=== PATIENT | female | born 1975 | race Hispanic/Latino ===

== ENCOUNTER 2017-04-13 07:14 | Emergency (ER) | payer OTHER ==
[2017-04-13] MEDS ORDERED: predniSONE 20 MG TAB ONE (07:53)
[2017-04-13 07:54] LABS: #Eosinphils 0.1 thou/uL (0.0-0.7); #Lymphocytes 1.5 thou/uL (1.20-3.40); #Monocytes 0.4 thou/uL (0.11-0.59); #Neutrophils 3.3 thou/uL (1.40-6.50); %Basophils 0.9 % (0.0-1.0); %Eosinophils 2.2 % (0.0-10.0); %Lymphocytes 28.2 % (21.0-51.0); %Monocytes 7.3 % (0.0-10.0); %Neutrophils 61.4 % (42.0-75.0); Hemoglobin 14.5 g/dL (12.0-16.0); Mean Corpuscular HGB CONC 32.8 g/dL (32.0-36.0); Mean Corpuscular Hemoglobin 32.3 pg (27.0-31.0); Mean Corpuscular Volume 98.3 fl (81.0-99.0); Mean Platelet Volume 6.1 fL (7.4-10.4); Platelet Count 371 thou/uL (130-400); RBC Distribution Width 11.8 % (11.5-14.5); Red Blood Cell (RBC) Count 4.49 mill/uL (4.20-5.40); White Blood Cell (WBC) Count 5.3 thou/uL (4.8-10.8)
[2017-04-13 08:12] LABS: Anion Gap 12 mmol/L (10-20); BUN (Urea Nitrogen) 19 mg/dL (7.0-18.7); CK (CPK) 73 U/L (29-168); Calc. Creatinine Clearance 0 mL/min (70-130); Calcium 9.6 mg/dL (7.8-10.44); Carbon Dioxide 25 mmol/L (22-29); Chloride 107 mmol/L (98-107); Estimated GFR-MDRD 86; Glucose 84 mg/dL (70-105); Potassium 3.7 mmol/L (3.5-5.1); Sodium 140 mmol/L (136-145)
== END 2017-04-13 08:25 | disposition home or self-care (01) ==
LOC: ERS 07:14
DX: M32.10 Systemic lupus erythematosus, organ or system involvement unspecified (principal); Z87.891 Personal history of nicotine dependence
CPT/HCPCS: 36415; 80048; 82550; 85025; 99283; J7506

== ENCOUNTER 2018-02-23 10:53 | Emergency (ER) | payer OTHER, SELFPAY ==
[2018-02-23 11:44] LABS: #Eosinphils 0.1 thou/uL (0.0-0.7); #Lymphocytes 1.6 thou/uL (1.20-3.40); #Monocytes 0.5 thou/uL (0.11-0.59); #Neutrophils 3.8 thou/uL (1.40-6.50); %Basophils 0.5 % (0.0-1.0); %Eosinophils 1.3 % (0.0-10.0); %Lymphocytes 27.2 % (21.0-51.0); %Monocytes 8.4 % (0.0-10.0); %Neutrophils 62.7 % (42.0-75.0); Hemoglobin 14.7 g/dL (12.0-16.0); Mean Corpuscular Hemoglobin 31.9 pg (27.0-31.0); Mean Platelet Volume 6.5 fL (7.4-10.4); Platelet Count 388 thou/uL (130-400); RBC Distribution Width 11.6 % (11.5-14.5); Red Blood Cell (RBC) Count 4.59 mill/uL (4.20-5.40)
[2018-02-23 12:10] LABS: ALT (SGPT) 14 U/L (8-55); AST (SGOT) 22 U/L (5-34); Albumin 4.2 g/dL (3.5-5.0); Alkaline Phosphatase 57 U/L (40-150); Anion Gap 13 mmol/L (10-20); BUN (Urea Nitrogen) 11 mg/dL (7.0-18.7); Bilirubin, Total 0.4 mg/dL (0.2-1.2); CKMB 1.3 ng/mL (0-6.6); Calc. Creatinine Clearance 0 mL/min (70-130); Calcium 9.6 mg/dL (7.8-10.44); Carbon Dioxide 25 mmol/L (22-29); Chloride 108 mmol/L (98-107); Estimated GFR-MDRD 80; Globulin 3.2 g/dL (2.4-3.5); Glucose 84 mg/dL (70-105); Potassium 4.2 mmol/L (3.5-5.1); Protein, Total 7.4 g/dL (6.0-8.3); Sodium 142 mmol/L (136-145); Troponin I Less than 0.010 ng/mL (< 0.028)
--- NOTE | 2018-02-23 14:15 | RAD ---
PA AND LATERAL VIEWS CHEST: Date: 02/23/18 HISTORY: Shortness of breath, tachycardia, chest pain. FINDINGS: The heart size is normal. The lungs are well expanded without focal areas of consolidation, pneumotho rax, or pleural effusions. No acute osseous abnormalities are seen. IMPRESSION: No radiographic evidence of acute cardiopulmonary process. POS: [facility]
[2018-02-23 14:49] LABS: Troponin I Less than 0.010 ng/mL (< 0.028)
== END 2018-02-23 15:11 | disposition home or self-care (01) ==
LOC: ERS 10:53
DX: R06.02 Shortness of breath (principal); M06.9 Rheumatoid arthritis, unspecified; Z87.891 Personal history of nicotine dependence; Z79.899 Other long term (current) drug therapy
CPT/HCPCS: 36415; 71046; 80053; 82553; 84484; 85025; 93005

== ENCOUNTER 2018-10-05 08:57 | Outpatient (CLI) | payer BC ==
--- NOTE | 2018-10-05 09:12 | RAD ---
XR Chest Pa Lat STANDARD HISTORY: Cough COMPARISON: 02/23/2018 FINDINGS: The heart size is normal. The lungs are well expanded without focal areas of consolidation, pneumothorax or pleural effusions. IMPRESSION: No radiographic evidence of acute cardiopulmonary process.
== END 2018-10-05 08:58 | disposition home or self-care (01) ==
LOC: BICRAD 08:57
PROVIDERS: ATTEND Family Medicine
DX: R05 Cough (principal)
CPT/HCPCS: 36415; 71046; 80053; 81003; 84702; 85025; 85610; 85730; 87389

== ENCOUNTER 2018-10-09 09:22 | Outpatient (CLI) | payer BC ==
--- NOTE | 2018-10-09 17:12 | EKG ---
Test Reason : Blood Pressure : / mmHG Vent. Rate : 063 BPM Atrial Rate : 063 BPM P-R Int : 132 ms QRS Dur : 074 ms QT Int : 392 ms P-R-T Axes : 059 043 040 degrees QTc Int : 401 ms Normal sinus rhythm Normal ECG When compared with ECG of 23-FEB-2018 11:05, No significant change was found Confirmed by DR. Mable SAMUEL ([id number]) on 10/09/2018 5:12:16 PM Referred By: KRIS Confirmed By:DR. Mable SAMUEL
== END 2018-10-09 09:23 | disposition home or self-care (01) ==
LOC: EKG 09:22
PROVIDERS: ATTEND Family Medicine
DX: Z01.818 Encounter for other preprocedural examination (principal)
CPT/HCPCS: 93005; 93010

== ENCOUNTER 2018-10-16 14:44 | Outpatient (CLI) | payer BC ==
--- NOTE | 2018-10-16 15:16 | MMO ---
Bilateral MAMMO Bilat Screen [facility]. CLINICAL HISTORY: Patient is 43 years old and is seen for screening. The patient has no family history of breast cancer. The patient has no personal history of cancer. The patient has a history of bilateral Implants in 2011. VIEWS: The views performed were: bilateral craniocaudal; bilateral mediolateral oblique; and bilateral Implant displaced with tomosynthesis. FILMS COMPARED: The present examination has been compared to prior imaging studies performed at [facility] on 06/16/2017, and at [facility] on 10/15/2013. MAMMOGRAM FINDINGS: There are scattered fibroglandular densities. There are no suspicious masses, suspicious calcifications, or new areas of architectural distortion. IMPRESSION: THERE IS NO MAMMOGRAPHIC EVIDENCE OF MALIGNANCY. A ROUTINE FOLLOW-UP MAMMOGRAM IN 1 YEAR IS RECOMMENDED. THE RESULTS OF THIS EXAM WERE SENT TO THE PATIENT. ACR BI-RADS Category 1 - Negative MAMMOGRAPHY NOTE: 1. A negative mammogram report should not delay a biopsy if a dominant of clinically suspicious mass is present. 2. Approximately 10% to 15% of breast cancers are not detected by mammography. 3. Adenosis and dense breasts may obscure an underlying neoplasm. Reported by: SAMUEL COOPER MD Electonically Signed: [id number]
== END 2018-10-16 14:45 | disposition home or self-care (01) ==
LOC: BICMAMMO 14:44
PROVIDERS: ATTEND Family Medicine
DX: Z12.31 Encounter for screening mammogram for malignant neoplasm of breast (principal); Z98.82 Breast implant status
CPT/HCPCS: 77063; 77067

== ENCOUNTER 2018-11-25 08:29 | Emergency (ER) | payer BC ==
--- NOTE | 2018-11-25 09:11 | CT ---
EXAM: Brain CTWithout contrast: HISTORY: Headache COMPARISON: None FINDINGS: No focal mass or midline shift. No intra or extra-axial hemorrhage. Sinuses and mastoids are clear of acute process. IMPRESSION: No mass or bleed or other significant acute intracranial process.
[2018-11-25] MEDS ORDERED: diphenhydrAMINE 50 MG/ML VIAL ONE ×2 (09:24→12:24)
[2018-11-25] MEDS ORDERED: Metoclopramide HCl 10 MG/2 ML VIAL ONE ×2 (09:24→12:24)
--- NOTE | 2018-11-25 09:52 | RAD ---
FRONTAL RADIOGRAPH CHEST: Date: 11/25/18 COMPARISON: 10/05/18. HISTORY: Headaches and leg swelling. FINDINGS: Lungs are clear. Heart and mediastinal contours unremarkable. IMPRESSION: No acute findings. POS: [facility]
[2018-11-25 09:59] LABS: #Basophils 0.1 thou/uL (0.0-0.2); #Eosinphils 0.1 thou/uL (0.0-0.7); #Lymphocytes 2.1 thou/uL (1.20-3.40); #Monocytes 0.7 thou/uL (0.11-0.59); %Basophils 0.5 % (0.0-1.0); %Eosinophils 0.8 % (0.0-10.0); %Lymphocytes 19.3 % (21.0-51.0); %Monocytes 6.2 % (0.0-10.0); %Neutrophils 73.2 % (42.0-75.0); Hemoglobin 9.4 g/dL (12.0-16.0); Mean Corpuscular HGB CONC 33.1 g/dL (32.0-36.0); Mean Corpuscular Volume 99.8 fL (78.0-98.0); Mean Platelet Volume 5.4 fL (7.4-10.4); Platelet Count 809 thou/uL (130-400); RBC Distribution Width 14.2 % (11.5-14.5); Red Blood Cell (RBC) Count 2.83 mill/uL (4.20-5.40)
[2018-11-25 10:25] LABS: ALT (SGPT) 55 U/L (8-55); AST (SGOT) 43 U/L (5-34); Albumin 4.4 g/dL (3.5-5.0); Alkaline Phosphatase 67 U/L (40-150); Anion Gap 13 mmol/L (10-20); BUN (Urea Nitrogen) 7 mg/dL (7.0-18.7); Bilirubin, Total 0.6 mg/dL (0.2-1.2); Calc. Creatinine Clearance 0 mL/min (70-130); Calcium 9.6 mg/dL (7.8-10.44); Carbon Dioxide 24 mmol/L (22-29); Chloride 104 mmol/L (98-107); Estimated GFR-MDRD Greater than 90; Globulin 2.9 g/dL (2.4-3.5); Glucose 80 mg/dL (70-105); Potassium 4.2 mmol/L (3.5-5.1); Protein, Total 7.3 g/dL (6.0-8.3); Sodium 137 mmol/L (136-145)
--- NOTE | 2018-11-25 10:47 | ULT ---
BILATERAL LOWER EXTREMITY VENOUS DOPPLER ULTRASOUND: Date: 11/25/18 HISTORY: Pain and swelling, assess for deep venous thrombosis. TECHNIQUE: Multiplanar Melgoza scale sonographic imaging of the venous structures obtained as detailed below. FINDINGS: The dock manager was unable to assess the common femoral vein, greater saphenous vein, proximal femora l vein, or profunda femoral vein on either side as the patient was unable to lie on her back and had to be imaged in the prone position. The left mid femoral vein, distal femoral vein, and popliteal vein appear patent. The mid and distal posterior tibial vein on the left could not be visualized secondary to edema. On the right, the mid femoral vein, distal femoral vein, and popliteal vein appear patent. Right post erior tibial vein could not be well visualized secondary to edema. IMPRESSION: Limited study secondary to patient positioning. The common femoral vein, greater saphenous vein, prof unda femoral vein, and proximal femoral vein could not be assessed on either side. The mid and distal femoral vein and popliteal vein demonstrate no evidence for deep venous thrombosis. POS: [facility]
[2018-11-25 11:50] LABS: Color Of CSF Supernatant COLORLESS (Colorless); Tube # 2; Unspun CSF Color COLORLESS (Colorless)
[2018-11-25 12:04] LABS: CSF, Glucose 50 mg/dl (40-70); CSF, Protein 22 mg/dL (15-40)
[2018-11-25 12:17] LABS: CSF Source CSF; Clarity Clear (Clear); Tube # 4
[2018-11-25 12:18] LABS: CSF Source CSF; Clarity Clear (Clear); Tube # 1
[2018-11-25] MEDS ORDERED: Furosemide 20 MG/2 ML VIAL ONE (12:24)
[2018-11-25] MEDS ORDERED: Magnesium 2 GM/50 ML BAG (IN WATER) ONE (12:24)
[2018-11-25] MEDS ORDERED: Ketorolac Tromethamine 30 MG/ML VIAL ONE (12:24)
== END 2018-11-25 13:44 | disposition home or self-care (01) ==
LOC: ERS 08:29
DX: R60.0 Localized edema (principal); R51 Headache; Z87.891 Personal history of nicotine dependence
CPT/HCPCS: 62270; 70450; 71045; 80053; 82945; 83880; 84157; 84484; 85025; 87070; 87205; 89051; 93005; 93970; 96365; 96367; 96375; J1200; J1885; J1940; J2765; J3475

== ENCOUNTER 2019-03-01 08:16 | Emergency (ER) | payer BC ==
[2019-03-01] MEDS ORDERED: Ketorolac Tromethamine 60 MG/2 ML VIAL ONE (08:40)
--- NOTE | 2019-03-01 09:11 | RAD ---
XR Chest 1 View Portable HISTORY: Cough COMPARISON: 11/25/2018 FINDINGS: The heart size is normal. The lungs are well expanded without focal areas of consolidation, pneumothorax or pleural effusions. IMPRESSION: No radiographic evidence of acute cardiopulmonary process.
== END 2019-03-01 10:48 | disposition home or self-care (01) ==
LOC: ERS 08:16
DX: J06.9 Acute upper respiratory infection, unspecified (principal); M06.9 Rheumatoid arthritis, unspecified; Z87.891 Personal history of nicotine dependence; Z79.899 Other long term (current) drug therapy
CPT/HCPCS: 71045; 87804; 93005; 96372; J1885

== ENCOUNTER 2019-05-13 09:58 | Outpatient (CLI) | payer BC ==
--- NOTE | 2019-05-13 11:59 | RAD ---
CHEST 2 VIEWS: Date: 05/13/2019 HISTORY: Acute bronchitis. COMPARISON: 10/05/2018. FINDINGS: Heart size is normal. The lungs are clear. IMPRESSION: No significant acute intrathoracic disease. POS: [facility]
== END 2019-05-13 09:59 | disposition home or self-care (01) ==
LOC: BICRAD 09:58
PROVIDERS: ATTEND Family Medicine
DX: J20.9 Acute bronchitis, unspecified (principal)
CPT/HCPCS: 36415; 71046; 80053; 81003; 84702; 85025; 85610; 85730; 87338; 87389

== ENCOUNTER 2019-05-15 09:24 | Outpatient (CLI) | payer BC ==
--- NOTE | 2019-05-16 15:55 | EKG ---
Test Reason : PREOP Blood Pressure : / mmHG Vent. Rate : 072 BPM Atrial Rate : 072 BPM P-R Int : 132 ms QRS Dur : 074 ms QT Int : 372 ms P-R-T Axes : 064 029 028 degrees QTc Int : 407 ms Normal sinus rhythm Normal ECG Confirmed by JUSTICE RPOER ([id number]) on 05/16/2019 3:54:34 PM Referred By: ЮЛИЯ Confirmed By:JUSTICE ROPER
== END 2019-05-15 09:25 | disposition home or self-care (01) ==
LOC: EKG 09:24
PROVIDERS: ATTEND Family Medicine
DX: Z01.810 Encounter for preprocedural cardiovascular examination (principal)
CPT/HCPCS: 93005; 93010

== ENCOUNTER 2019-05-31 10:35 | Outpatient (CLI) | payer BC ==
--- NOTE | 2019-05-31 11:49 | ULT ---
PELVIC ULTRASOUND INCLUDING TRANSABDOMINAL AND TRANSVAGINAL AND VASCULAR DUPLEX WITH COLOR AND SPECTR AL DOPPLER IMAGING: HISTORY: Postmenopausal bleeding. FINDINGS: Uterus measures 8.3 x 4.1 x 5.1 cm. Endometrium has a very nodular focal area of increased echogenicity and overall measurements of 1.4 c m in thickness. Right ovary: 2.5 x 2.7 x 4.0 cm containing a 1.6 x 1.9 x 2.3 cm cyst. Left ovary: 1.8 x 1.9 x 2.2 cm. Vascular flow noted to both ovaries. IMPRESSION: Nodular focal echogenic density within the endometrial cavity at the level of the fundus of the uteru s without definitive blood flow. Possibilities include that of focal hemorrhage versus a soft tissue mass. Gynecological followup is suggested. POS: [facility]
== END 2019-05-31 10:36 | disposition home or self-care (01) ==
LOC: BICULT 10:35
PROVIDERS: ATTEND Family Medicine
DX: N92.1 Excessive and frequent menstruation with irregular cycle (principal); R10.84 Generalized abdominal pain; N85.8 Other specified noninflammatory disorders of uterus
CPT/HCPCS: 36415; 76856; 80053; 81001; 83001; 84443; 84703; 85025; 87086; 87491; 87591

== ENCOUNTER 2019-08-06 18:07 | Observation (INO) | payer BC ==
[2019-08-06] MEDS ORDERED: Acetaminophen 325 MG TAB PO PRN (19:19)
[2019-08-06] MEDS ORDERED: Ondansetron ODT 4 MG TAB PO PRN (19:19)
[2019-08-06] MEDS ORDERED: Ondansetron PF 4 MG/2 ML Vial IVP PRN ×2 (19:19→20:22)
[2019-08-06 20:08] LABS: Hemoglobin 7.8 g/dL (12.0-16.0); Mean Corpuscular HGB CONC 32.8 g/dL (32.0-36.0); Mean Corpuscular Volume 97.4 fL (78.0-98.0); Mean Platelet Volume 5.9 fL (7.4-10.4); Platelet Count 557 thou/uL (130-400); RBC Distribution Width 13.4 % (11.5-14.5); Red Blood Cell (RBC) Count 2.44 mill/uL (4.20-5.40); White Blood Cell (WBC) Count 10.7 thou/uL (4.8-10.8)
[2019-08-06] MEDS ORDERED: cloNIDine 0.1 MG TAB PO PRN (20:22)
[2019-08-06] MEDS ORDERED: Promethazine HCl 12.5 MG in Sodium Chloride 0.9% 50 ML IVPB PRN (20:22)
[2019-08-06] MEDS ORDERED: Labetalol HCl 100 MG/20 ML VIAL SLOW IVP PRN (20:22)
[2019-08-06] MEDS ORDERED: hydrALAZINE 20 MG/ML VIAL SLOW IVP PRN (20:22)
[2019-08-06] MEDS ORDERED: Bisacodyl 5 MG TAB PO PRN (20:23)
[2019-08-06] MEDS ORDERED: Senokot S 8.6-50 MG TAB PO PRN (20:23)
[2019-08-06 20:26] LABS: ALT (SGPT) 27 U/L (8-55); AST (SGOT) 17 U/L (5-34); Albumin 3.6 g/dL (3.5-5.0); Alkaline Phosphatase 53 U/L (40-110); Anion Gap 12 mmol/L (10-20); BUN (Urea Nitrogen) 8 mg/dL (7.0-18.7); Bilirubin, Total 0.6 mg/dL (0.2-1.2); Calc. Creatinine Clearance 0 mL/min (70-130); Calcium 9.2 mg/dL (7.8-10.44); Carbon Dioxide 24 mmol/L (22-29); Chloride 110 mmol/L (98-107); Estimated GFR-MDRD 83; Globulin 2.7 g/dL (2.4-3.5); Glucose 99 mg/dL (70-105); Potassium 3.8 mmol/L (3.5-5.1); Protein, Total 6.3 g/dL (6.0-8.3); Sodium 142 mmol/L (136-145)
--- NOTE | 2019-08-06 20:29 | PDOC.HHP ---
Hospitalist HPI - History of Present Illness Leg swelling History of Present Illness: Patient is a 44 year old female with PMH lupus who presents as transfer from [facility] for anemia, bilateral leg swelling. Patient had a cosmetic procedure last Monday by Dr Hector Olmedo in [place]. She has had several of these types of proceures before, this was a revision of a liposuction procedure which was performed after lingering hip pain following previous liposuction. She reports was doing well, however she developed swollen legs and felt like her toes were full and painful, she has 3+ pitting edema to ble w/ ecchymoses on thighs and lower legs buttocks and back (bruising similar to previos procedures), she states fat from thighs and back injected into buttocks, she also complains of a headache and surgical pain for which she has gone through postop pain meds already. She went to [facility] there she was found to have anemia with hgb 7.4, she had BLE ultrasound which was negative for DVT, CXR without acute findings, patient transferred here for further workup. Of note, patient has lupus diagnosed 3 years ago controlled with daily plaquenil , her previous symptoms of this were arthritis but has a history of mild anemia. She takes plaquenil and had preop labs that were reportedly unremarkable as well as EKG and CXR, she had to hold plaquenil for 2 months before procedure. She denies GI bleeding, no history of heart disease, no chest pain, no shortness of breath, no nausea/vomiting, bno hematuria, otherwise feeling well. Her fleet mechanic is Dr Phillip. Hospitalist ROS - Review of Systems Constitutional: denies: fever, chills, sweats, weakness, malaise, other Eyes: denies: pain, vision change, conjunctivae inflammation, eyelid inflammation, redness, other Respiratory: denies: cough, dry, shortness of breath, hemoptysis, SOB with excertion, pleuritic pain, sputum, wheezing, other Cardiovascular: denies: chest pain, palpitations, orthopnea, paroxysmal noc. dyspnea, edema, light headedness, other Gastrointestinal: denies: nausea, vomiting, abdominal pain, diarrhea, constipation, melena, hematochezia, other Genitourinary: denies: dysuria, frequency, incontinence, hematuria, retention, other Musculoskeletal: reports: other (surgical site pain lower back and hips) Skin: reports: other (bilateral leg swelling in feet mostly). denies: rash, lesions, mya, bruising Neurological: denies: weakness, numbness, incoordination, change in speech, confusion, seizures, other All other systems reviewed; all pertinent +/- noted in HPI/Subj Hospitalist History - Past Medical History Other Medical History: SLE - Past Surgical History Other Surgical History: gastric sleeve tummy tuck liposuction liposuctoin revision - Family History Family History: reports: no pertinent history Other Family History: Reviewed, no relevant family history - Social History Smoking Status: Never smoker Alcohol: reports: None Drugs: reports: none - Exam General Appearance: NAD, awake alert Eye: PERRL, anicteric sclera ENT: normocephalic atraumatic, no oropharyngeal lesions, moist mucosa Neck: supple, symmetric, no JVD, no thyromegaly, no lymphadenopathy, no carotid bruit Heart: RRR, no murmur, no gallops, no rubs, normal peripheral pulses Respiratory: CTAB, no wheezes, no rales, no ronchi, normal chest expansion, no tachypnea, normal percussion Gastrointestinal: soft, non-tender, non-distended, normal bowel sounds, no palpable masses, no hepatomegaly, no splenomegaly, no bruit Extremities: no cyanosis, no clubbing, 1+ LE edema (to feet mostly somewhat in ankle/calf but less so) Skin: normal turgor, no rashes Skin - other findings: bruising along hip,back,thigh in surgery area incision w/ o pus or redness Neurological: cranial nerve grossly intact, normal sensation to touch, no weakness, no focal deficits, no new deficit Musculoskeletal: normal tone, normal strength, no muscle wasting Psychiatric: normal affect, normal behavior, A&O x 3 Hospitalist Results - Labs Result Diagrams: 08/06/19 19:59 08/06/19 19:59 Lab results: WBC 10.7 thou/uL (4.8-10.8) 08/06/19 19:59 Hgb 7.8 g/dL (12.0-16.0) L 08/06/19 19:59 Hct 23.8 % (36.0-47.0) L 08/06/19 19:59 MCV 97.4 fL (78.0-98.0) 08/06/19 19:59 Plt Count 557 thou/uL (130-400) H 08/06/19 19:59 Sodium 142 mmol/L (136-145) 08/06/19 19:59 Potassium 3.8 mmol/L (3.5-5.1) 08/06/19 19:59 Chloride 110 mmol/L (98-107) H 08/06/19 19:59 Carbon Dioxide 24 mmol/L (22-29) 08/06/19 19:59 BUN 8 mg/dL (7.0-18.7) 08/06/19 19:59 Creatinine 0.76 mg/dL (0.6-1.1) 08/06/19 19:59 Glucose 99 mg/dL (70-105) 08/06/19 19:59 Calcium 9.2 mg/dL (7.8-10.44) 08/06/19 19:59 Total Bilirubin 0.6 mg/dL (0.2-1.2) 08/06/19 19:59 AST 17 U/L (5-34) 08/06/19 19:59 ALT 27 U/L (8-55) 08/06/19 19:59 Alkaline Phosphatase 53 U/L (40-110) 08/06/19 19:59 Serum Total Protein 6.3 g/dL (6.0-8.3) 08/06/19 19:59 Albumin 3.6 g/dL (3.5-5.0) 08/06/19 19:59 Additional comment: outside imaging reports reviewed, ble us without dvt, cxr without acute process Hospitalist H&P A/P - Plan Plan: Patient is a 44 year old female with PMH lupus who presents as transfer from [facility] for anemia, bilateral leg swelling. # anemia - admit to onc floor - repeat labs, add iron/b12/folate/c3/c4/peripheral smear - transfuse if symptoms develop or if hgb < 7 or if active bleeding observed - CT abdomen r/o slow bleed/retroperitoneal hemorrhage etc - avoid anticoag, SCDs for dvt ppx # bilateral lower extremity edema - echo ordered - outside hospital performed us bilateral lower extremities, no DVT found, continue SCDs - I/Os # recent cosmetic procedure - last monday had liposuction, surgeon Dr Hector Olmedo in [facility] - treatment as above # SLE - was off of plaquenil for some time, now back on it - continue plaquenil, workup of anemia as above # DVT ppx - scd # GI ppx - ppi Code: full
[2019-08-06 20:34] VITALS: BMI 34.7
[2019-08-06 20:53] LABS: Reticulocyte Count 7.9 % (0.5-1.5)
[2019-08-06 21:02] LABS: PTT 26.2 SEC (22.9-36.1); Prothrombin Time 12.7 sec (12.0-14.7)
[2019-08-06 21:17] LABS: Complement-C4 30.9 mg/dL (15-57)
[2019-08-06] MEDS: HYDROcodone/Acetaminophen 5/325 mg Tablet PO PRN (21:17)
[2019-08-06 21:23] LABS: Bacteria/HPF None Seen HPF (None Seen); Bilirubin Negative (Negative); Blood, Urine Negative (Negative); Clarity Clear (Clear); Glucose, Urine (Dipstick) Normal (Negative); Leukocyte Negative Leu/uL (Negative); Nitrite Negative (Negative); Protein, Urine (Dipstick) Negative (Neg-Trace); RBC/HPF 0-3 HPF (0-3)
[2019-08-06 21:24] LABS: Urine Culture Reflex No No
[2019-08-06 21:35] LABS: Band 4 % (5-11); Eosinophils 3 % (0-10); Lymphocytes 29 % (21-51); MDiff Complete? YES; Mean Corpuscular HGB CONC 32.4 g/dL (32.0-36.0); Mean Corpuscular Hemoglobin 31.4 pg (27.0-31.0); Mean Platelet Volume 5.8 fL (7.4-10.4); Monocytes 7 % (0-10); Neutrophil 57 % (42-75); Platelet Count 567 thou/uL (130-400); RBC Distribution Width 13.5 % (11.5-14.5); Red Blood Cell (RBC) Count 2.55 mill/uL (4.20-5.40); White Blood Cell (WBC) Count 10.4 thou/uL (4.8-10.8)
[2019-08-06 21:50] LABS: Iron 65 ug/dL (50-170); Iron Binding Capacity, Total 369 mcg/dL (265-497)
[2019-08-06 22:16] LABS: Ferritin 136.11 ng/mL (10-291)
--- NOTE | 2019-08-06 22:16 | CT ---
CT OF THE ABDOMEN AND PELVIS WITHOUT CONTRAST: 08/06/19 INDICATION: History of new onset anemia status post liposuction. COMPARISON: No CT comparisons of the abdomen and pelvis are available. FINDINGS: Lung bases are clear. There is a small to moderate sized hiatal hernia. There is postprocedural change of a gastroplasty. Unopacified liver, spleen, pancreas, adrenal glands and kidneys are unremarkable appearing. No renal or ureteral calculus is evident. No retroperitoneal hematoma is evident. There is prominent reticulation of the subcutaneous fat surrounding the hip girdle bilaterally. No la rge drainable fluid collection is evident. There is some gas present within soft tissues of the left gluteal region possibly related to injection site. There are few scattered colonic diverticula involving the colon without evidence of active diverticul itis. Small bowel is of normal caliber. The appendix is normal in the right hemipelvis. The visualize d reproductive structures are unremarkable appearing. Bladder is partially decompressed. There is mil d disc degenerative disease at L4-5 and L5-S1. IMPRESSION: 1. Reticulation of the subcutaneous fat surrounding the pelvis is likely related to patient's re ported history of liposuction. No large hematoma is grossly evident. 2. No retroperitoneal hematoma is demonstrated. 3. Postprocedural change of gastroplasty with moderate sized hiatal hernia. 4. Diverticulosis. POS: [facility]
[2019-08-07] MEDS: HYDROcodone/Acetaminophen 5/325 mg Tablet PO PRN ×2 (01:53→11:36)
[2019-08-07] MEDS: Morphine 2 MG/ML SYRINGE SLOW IVP PRN ×2 (04:16→08:25)
[2019-08-07 06:15] LABS: #Eosinphils 0.3 thou/uL (0.0-0.7); #Lymphocytes 2.7 thou/uL (1.20-3.40); #Monocytes 0.8 thou/uL (0.11-0.59); #Neutrophils 5.3 thou/uL (1.40-6.50); %Basophils 0.4 % (0.0-1.0); %Eosinophils 3.2 % (0.0-10.0); %Lymphocytes 29.9 % (21.0-51.0); %Monocytes 8.7 % (0.0-10.0); %Neutrophils 57.9 % (42.0-75.0); Hemoglobin 8.1 g/dL (12.0-16.0); Mean Corpuscular HGB CONC 33.1 g/dL (32.0-36.0); Mean Corpuscular Hemoglobin 32.2 pg (27.0-31.0); Mean Corpuscular Volume 97.1 fL (78.0-98.0); Mean Platelet Volume 5.7 fL (7.4-10.4); Platelet Count 513 thou/uL (130-400); RBC Distribution Width 13.3 % (11.5-14.5); White Blood Cell (WBC) Count 9.1 thou/uL (4.8-10.8)
[2019-08-07 06:33] LABS: Anion Gap 12 mmol/L (10-20); BUN (Urea Nitrogen) 8 mg/dL (7.0-18.7); Calc. Creatinine Clearance 148 mL/min (70-130); Calcium 8.6 mg/dL (7.8-10.44); Carbon Dioxide 23 mmol/L (22-29); Chloride 109 mmol/L (98-107); Estimated GFR-MDRD Greater than 90; Glucose 79 mg/dL (70-105); Sodium 140 mmol/L (136-145)
[2019-08-07] MEDS ORDERED: Polyethylene Glycol 3350 17 GM Packet PO SCH (09:00)
[2019-08-07] MEDS ORDERED: Hydroxychloroquine Sulfate 200 MG TAB PO SCH (09:00)
[2019-08-07 12:27] VITALS: BP 127/65; TEMP 98.2
--- NOTE | 2019-08-08 02:51 | DIS ---
DATE OF ADMISSION: 08/06/2019 DATE OF DISCHARGE: 08/07/2019 REASON FOR HOSPITALIZATION: Leg swelling. SIGNIFICANT FINDINGS: The patient was found to have bilateral lower extremity edema secondary to recent liposuction. PROCEDURES PERFORMED AND TREATMENTS RENDERED: Ms. Clement is a pleasant 44-year-old female, who presented to [facility] on 08/06/2019 with lower extremity swelling. The patient recently underwent liposuction procedure in which liposuction was performed and this fat was harvested and injected into her gluteal region for cosmetic reasons. The patient has had this procedure performed in the past. Subsequently, she ended up with bruising and lower extremity edema. This appears to have repeated and she does have significant bruising and lower extremity edema. The patient has lower extremity edema and significant pain associated with this. The patient was also found to be anemic and her hemoglobin was found to be 7.8 on admission. The patient's hemoglobin was trended and found to be stable at a level of 8.1 on the day of discharge on 08/07/2019. The patient having no bleeding. The patient had an ultrasound of the lower extremity in the Urgent Care, I reviewed this and it was found to be negative for DVT. The patient had a CT of the abdomen and pelvis to evaluate for possible sources of bleeding, please see full report for details. There is no large hematoma grossly evident. There is reticulation of subcutaneous fat surrounding the pelvis consistent with the patient's recent history of liposuction. Please see full radiographic report of CT of the abdomen/pelvis for other chronic changes. The patient is breathing comfortably on room air. The patient is able to get up and from the restroom without any difficulties. The patient was recommended safe for discharge with close followup in the outpatient setting with primary care physician and her outpatient surgeon. The patient also has a past medical history of lupus. She has been off her Plaquenil for the past two months and this was intentionally stopped perioperatively. She will return to the care of her director of maintenance for restarting of Plaquenil. CONDITION ON DISCHARGE: Stable. SPECIFIC INSTRUCTIONS FOR THE PATIENT/FAMILY: 1. The patient recommended to follow up with surgery in the next 5 to 7 days for all future of matters relating to liposuction and its complications. 2. The patient is recommended to follow up with primary care physician, who will be able to aid in chronic lower extremity swelling after disruption of the lymphatic system secondary to liposuction. 3. The patient recommended to restrict fluid intake to avoid lower extremity edema. 4. The patient recommended to do other conservative measures, which I educated her explicitly including elevating the legs and wrapping the legs with CARMELLA constrictive banding at bedtime. 5. The patient is recommended to take all medications as directed. 6. The patient is recommended to return to acute care hospital immediately if signs or symptoms return, worsen, or any other new symptoms occur. DISCHARGE MEDICATIONS: Please see full discharge medication list for details. 1. Ibuprofen 800 mg one tablet p.o. t.i.d. p.r.n. severe pain, with food or milk. 2. Plaquenil 200 mg one tablet p.o. daily. 3. Tylenol 3 with codeine one tablet p.o. t.i.d. p.r.n. severe pain. Greater than 38 minutes spent coordinating care and discharge process for this patient. Job ID: [id number]
== END 2019-08-07 13:20 | disposition home or self-care (01) ==
LOC: ONC 19:01
PROVIDERS: ADMIT Internal Medicine; ATTEND Internal Medicine
DX: D64.9 Anemia, unspecified (principal); R60.0 Localized edema; M32.9 Systemic lupus erythematosus, unspecified; Z88.8 Allergy status to other drugs, medicaments and biological substances
CPT/HCPCS: 36415; 36430; 74176; 80048; 80053; 81001; 82607; 82728; 82746; 83540; 83550; 84443; 85025; 85027; 85046; 85060; 85610; 85730; 86160; 86850; 86900; 86901; 93306; 96374; 96376; G0378; J2270; P9016